=== PATIENT | male | born 1975 | race Caucasian/White ===

== ENCOUNTER 2016-09-26 05:10 | Inpatient (IN) | payer OTHER ==
[~2016-09-26] VITALS: Ht 182.9 cm; Wt 108.9 kg
[~2016-09-26 05:10] MED LIST: ASPIRIN EC325 M2 PO; COLACE100 M1 PO; DILAUDID2 M1 PO; GLUCOSAMIN-CHO1 EACH PO; IBUPROFEN400 M1 PO; MIRALAX17 G1 PO; MS CONTIN30 M1 PO
--- NOTE | 2016-09-26 08:48 | Admission Core Measures ---
Admission Meds I reviewed the following Meds: Current Medications Sig/Dali Start time Last Medication Dose Stop Time Status Admin Acetaminophen 975 MG ONCE 09/26 0000 NR (Tylenol) 09/26 2358 Cefazolin Sodium 2,000 MG ONCE 09/26 0000 NR (Kefzol-Ancef Inj) 09/26 2358 Oxycodone HCl 10 MG ONCE 09/26 0000 NR (Roxicodone) 09/26 2358 Acute Coronary Syndrome Inclusion Criteria ACS Diagnosis No Inpatient Core Measures LDL Reminder: If No, please order W/I first 24hr of stay Congestive Heart Failure Inclusion Criteria CHF Diagnosis No Cerebrovascular accident Inclusion Criteria CVA/TIA Diagnosis No Inpatient Core Measures Bedside Swallow Eval Reminder: If BSE failed, place ST order Antithrombotic Reminder: Order Antithrombotic Medication by end of day 2 Antithrombotic Reminder: Document Reason Antithrombotic Not ordered by end of day 2 AFIB/Flutter Reminder: If Present, add to problem list AFIB/Flutter Reminder: Order Anticoag Medication for pts with AFIB/Flutter Atherosclerosis Reminder: If Present, add to problem list LDL Reminder: If No, please order W/I first 24hr of stay PT Order Reminder: If No, please order Venous thromboembolism Inpatient Core Measures VTE Risk Factors: [facility] prophylaxis d/t No contraindications No VTE Pharm Prophylaxis d/t No contraindications Inclusion Criteria - Per Current guidelines, there needs to be overlap - treatment for the first 5 days of Warfarin therapy. - Parenteral Anticoagulation (IV or SC) needs to be - given along with Warfarin therapy. VTE Diagnosis No VTE Type NONE VTE Confirmed by (Test) NONE Problem List As ranked by this Provider includes Assessment & Plan 1. S/P hip replacement
[2016-09-26] MEDS ORDERED: COLACE100 M1 PO (09:02)
[2016-09-26] MEDS ORDERED: MS CONTIN30 M1 PO (09:02)
[2016-09-26] MEDS ORDERED: MIRALAX17 G1 PO (09:02)
[2016-09-26] MEDS ORDERED: ASPIRIN325 M2 PO (09:02)
[2016-09-26] MEDS ORDERED: DILAUDID4 M1 PO (09:02)
--- NOTE | 2016-09-26 09:04 | Patient Discharge Instructions ---
Discharge Instructions General Discharge Information You were seen/treated for: Right hip degenerative joint disease You had these procedures: Right total hip arthroplasty Watch for these problems: Significantly increased pain or difficulty ambulating Temperatures over 101 Increased redness or drainage from incision No bath, but you may shower: Yes Other wound care: Daily dry dressing change Special Instructions: See pre-printed information booklet Diet Continue normal diet: Yes Activity Activity Self Limited: Yes Other activity limits: Ambulate with walker as instructed by physical therapy Do not drive or operate heavy machinery until seen by your physician and off all pain medications Acute Coronary Syndrome Inclusion Criteria At DC or during hospital stay patient has or had the following: ACS DIAGNOSIS No Discharge Core Measures Meds if any: Prescribed or Continued at Discharge Meds if any: NOT Prescribed or Continued at Discharge Congestive Heart Failure Inclusion Criteria At DC or during hospital stay patient has or had the following: CHF DIAGNOSIS No Discharge Core Measures Meds if any: Prescribed or Continued at Discharge Meds if any: NOT Prescribed or Continued at Discharge Cerebrovascular accident Inclusion Criteria At DC or during hospital stay patient has or had the following: CVA/TIA Diagnosis No Discharge Core Measures Meds if any: Prescribed or Continued at Discharge Meds if any: NOT Prescribed or Continued at Discharge Venous thromboembolism Inclusion Criteria VTE Diagnosis No VTE Type NONE VTE Confirmed by (Test) NONE Discharge Core Measures - Per Current guidelines, there needs to be overlap - treatment for the first 5 days of Warfarin therapy. - If discharged on Warfarin prior to 5 days of - overlap therapy, the patient will need to be - assessed for post discharge needs including - *Post discharge parental anticoagulation - *Warfarin and/or parental anticoagulation education - *Follow up date to check INR post discharge At least 5 days overlap therapy as Inpatient No Meds if any: Prescribed or Continued at Discharge Note: Overlap Therapy is Warfarin and Anticoagulant Meds if any: NOT Prescribed or Continued at Discharge
--- NOTE | 2016-09-26 09:07 | Surg Short-stay <48hrs Dis Sum ---
Visit Information Visit Dates Admission Date: 09/26/16 Discharge Date: 09/26/16 Surgical Short Stay DC Summary Admission Diagnosis: Right hip degenerative joint disease Final Diagnosis: Same Procedure(s): Right total hip arthroplasty Summary/Significant Findings: The patient was admitted on 09/26/2016. He was brought to the operating theater where he underwent a total hip arthroplasty. Postoperatively the patient progressed as expected, his pain was under adequate control, and he ambulated safely with physical therapy. The patient voided postoperatively and tolerated a diet. He was discharged with an uneventful hospital course. Condition at Discharge: Stable Discharge Disposition: home health services Discharge instructions provided to patient/family: Yes Post discharge follow-up plan: Call the office to be seen in 6 weeks or earlier if needed
--- NOTE | 2016-09-26 11:49 | RADIOLOGY REPORT ---
EXAMINATION: XR HIP, RIGHT CLINICAL INFORMATION: Right hip replacement COMPARISON: None TECHNIQUE: Two views of the right hip. FINDINGS: Prosthetic components of the right total hip arthroplasty are appropriately aligned. No periprosthetic fracture. Gas from recent surgery is present in the surrounding soft tissues. IMPRESSION: Normal postoperative appearance of the right total hip prosthesis.
[2016-09-26 14:00] VITALS: BP 124/74
--- NOTE | 2016-09-26 15:34 | NUR ---
PATIENT CAME UP FROM THE PACU. A/OX3. VSS;BRADYCARDIC PER BASELINE. SURGICAL PA'S AWARE. PATIENT ASYMPTOMATIC. PAIN LEVEL 5/10, TORDOL IV GIVEN. LATER ASSESSMENT OF PAIN LEVEL IS 2/10. PATIENT AMBULATED WITH PT AND THIS RN. STEADY GAIT WITH THE USE OF WALKER. AT THE BEDSIDE. CAREPARTNER BADGE AND MEAL TICKET GIVEN. REPORT GIVEN TO [facility]. PATIENT TO BE DC IF VOIDING.
--- NOTE | 2016-09-26 15:56 | PN- Orthopedic ---
Subjective Subjective: pain well controlled, no n/v/c/sob, tolerating diet, +oob with pt, cleared for dc home. due to void postop Objective Vital Signs and I&Os Vital Signs Date Time Temp Pulse Resp B/P B/P Pulse O2 O2 Flow FiO2 Mean Ox Delivery Rate 09/26 1400 97.8 52 18 124/74 98 Room Air 09/26 1346 Room Air Room Air Intake & Output 09/26 1600 09/26 0800 09/26 0000 09/25 1600 09/25 0800 09/25 0000 Intake Total 1400 Output Total Balance 1400 Intake, Oral 1400 Patient 240 lb 240 lb Weight Physical Exam: GEN: NAD CARD: S1S2 RRR PULM: CTAB EXT: RLE hip dsg CDI, ttp over incision, +DP/PT pulses bl, calves soft nt bl, + dorsi/plantar flexion bl, penelope sensate intact bl le Assessment/Plan Assessment/Plan A: POD0 sp R TEOFILO, stable, DTV postop, cleared by PT for home dc. P: OOB, PT, WBAT reg diet as tolerated heplock prn pain meds dvt ppx will dw attending Core Measures/Miscellaneous Venous Thromboembolism VTE Risk Factors: Surgery VTE Contraindications: No Contraindications VTE Diagnosis: No VTE Type: NONE VTE Confirmed by (Test): NONE Beta Evita Is Beta Evita a Home Med? No Antibiotics Is Patient on Antibiotics? Yes If Yes: prophylaxis
[2016-09-26 16:00] VITALS: BP 108/64
--- NOTE | 2016-09-26 19:23 | Operative Report ---
Operative/Inv Procedure Report Surgery Date: 09/26/16 Name of Procedure: Right total hip replacement Pre-Operative Diagnosis: Primary right hip DJD Post-Operative Diagnosis: Same Estimated Blood Loss: 300 Surgeon/Community Support Associate: LISA AGUIRRE,MEHRAN Dickson Anesthesia: general endotracheal tube, block Operative/Procedure Note Note: Description of Procedure: The patient was taken to the operating room and positively identified. After induction of spinal and general anesthesia and administration of appropriate pre-operative antibiotics, the patient was positioned supine on the operating room table and all bony prominences were well padded. After performing a surgical timeout, the right lower extremity was prepped and draped in the usual sterile fashion. A direct anterior approach was made to the right hip. The incision was carried sharply through superficial soft tissues to the level of the fascia. Meticulous hemostasis was maintained with Bovie electocautery. The fascia over the tensor fascia chidi muscle was opened sharply and the interval between the TFL and the sartorius was entered bluntly taking care to stay lateral to the lateral femoral cutaneous nerve. Retractors were placed around the femoral neck and the pericapsular fat was identified. The ascending branches of the lateral femoral circumflex vessels were identified and carefully coagulated. The pericapsular fat and anterior capsule were then resected. A napkin ring osteotomy was performed and the femoral head was removed without difficulty. Attention was then turned to the acetabulum. After appropriate placement of retractors, the acetabulum was exposed. Soft tissue was cleaned from the acetabular margin and notch. Overhanging osteophytes were removed and the teardrop was exposed. The acetabulum was then sequentially reamed to accept a 62 mm Tensed Tritanium hemispherical solid back shell. This was impacted into place in the appropriate position and fitted with a 36 mm Trident zero degree alumina ceramic insert. Attention was then turned to the femur. After performing the appropriate ligament releases, the proximal femur was exposed. It was then sequentially broached to accept a size 7 Priyank accolade 2 stem. This was trialed for leg length and stability. The trial component was removed and the final component was impacted into place. The trunnion was carefully cleaned and fit with a 36 mm, +0 Biolox delta ceramic femoral head. The hip was reduced and put through a full range of motion and found to be stable. The articular space was then irrigated with sterile saline. The periarticular soft tissues were infilitrated with Marcaine. The fascial layer was closed with interrupted #1 vicryl suture and the skin was re-approximated with interrupted 2 -0 vicryl. The skin was closed with a running 3-0 V-Lock suture. Steri-strips and a sterile dressing were applied. The patient was awakened and taken to the recovery room in satisfactory condition.
--- NOTE | 2016-09-26 20:16 | NUR ---
PATIENT DISCHARGED AT 1750. DISCHARGE INSTRUCTION GIVEN. IV SITE DISCONTINUED. PATIENT IN NO APPARENT DISTRESS. LEFT FLOOR VIA WHEEL CHAIR ACCOMPANIED BY HIS SPOUSE.
== END 2016-09-26 17:54 | disposition home health service (06) | DRG 470 ==
LOC: SDA 05:10 → ENRESERV 12:11 → ENTRNSPT 12:18 → EDTRNSPT 12:50 → EDTRNSPTSTS 13:04 → 2NA 13:12 → CMPTRNSPT 13:13 → 2NA 17:54
PROVIDERS: ADMIT Orthopaedic Surgery
PROC: 0SR903A Replacement of Right Hip Joint with Ceramic Synthetic Substitute, Uncemented, Open Approach (ICD-10-PCS; principal; 2016-09-26)
DX: M16.11 Unilateral primary osteoarthritis, right hip (principal)
CPT/HCPCS: 2NAP; 73502-RT; 88304; 97110-GO; 97116-GO; 97161-GP; 97530-GO; C9399; J0131; J0690; J0735; J2405; J2550; J7042